=== PATIENT | female | born 1980 | race Two or more races ===

== ENCOUNTER 2020-12-27 14:23 | Emergency (ER) | payer SELFPAY ==
[~2020-12-27] VITALS: Ht 162.6 cm; Wt 61.7 kg
[2020-12-27] MEDS ORDERED: ACETAMINOPHEN 500 MG TAB PO ONE (17:15)
[2020-12-27 17:18] VITALS: BP 140/87
== END 2020-12-27 17:26 | disposition home or self-care (01) ==
LOC: ER 14:23
DX: M79.10 Myalgia, unspecified site (principal); T50.Z95A Adverse effect of other vaccines and biological substances, initial encounter; Y92.89 Other specified places as the place of occurrence of the external cause; Z88.8 Allergy status to other drugs, medicaments and biological substances